=== PATIENT | female | born 1955 | race Two or more races ===

== ENCOUNTER 2025-04-21 17:01 | Emergency (ER) | payer OTHER ==
[~2025-04-21] VITALS: Ht 157.5 cm; Wt 66.0 kg
--- NOTE | 2025-04-21 17:39 | ECG ---
[facility] Test Date: 2025-04-21 Test Time: 17:31:00 Pat Name: AMOL CAMPOS Department: COUNTS INCLUDE 234 BEDS AT THE [facility] ED Patient ID: [id number] INCLUDE [id number] BEDS AT THE [facility]-[id number] Room: Gender: F Undercollar Baster: VALORIE : 1955 Requested By: VAL ALLEN Order Number: [id number] Reading MD: Lars Gomes Measurements Intervals [place] Rate: 71 P: 53 ME: 124 QRS: 67 QRSD: 110 T: -14 QT: 539 QTc: 586 Interpretive Statements Sinus rhythm Nonspecific T abnormalities, anterior leads Prolonged QT interval Electronically Signed On 04-21-2025 22:23:30 PDT by Lars Gomes Please click the below link to view image of tracing.
--- NOTE | 2025-04-21 18:33 | DVH ---
Procedure: CT HEAD WITHOUT CONTRAST Study Date and Requested Time: 04/21/2025 06:01 PM History: Headache Comparison: None Dose: CTDI: 52.22 mGy DLP: 859.6 mGycm Technique: Multiplanar images obtained through the brain without intravenous contrast. Findings: Normal brain volume and formation. Mild chronic small vessel ischemic changes. No hemorrhages, masses, mass effect, midline shift, herniation or cytotoxic edema following a large v ascular territory. No intra-axial or extra-axial fluid collections. No evidence of hydrocephalus. The basal cisterns are patent. The pituitary gland, sella and parasellar regions are unremarkable. The cerebellar tonsils are in nor mal position. The cerebellum is unremarkable. Bilateral lens replacement. Otherwise, orbits and globes are unremarkable. The paranasal sinuses and mastoids are clear. There are no worrisome calvarial lesions. Impression: No evidence of acute intracranial abnormality.
[2025-04-21 19:10] LABS: Hematocrit 42.1 % (36.0-46.0); Hemoglobin 14.2 g/dL (12.2-16.2); Mean Corpuscular Hemoglobin 30.5 pg (28.0-32.0); Mean Corpuscular Volume 90.5 fL (80.0-100.0); Nucleated Red Blood Cells % 0.1 %
[2025-04-21 19:19] LABS: Chloride 103 mmol/L (98-107); Potassium 4.4 mmol/L (3.5-5.1); Sodium 141 mmol/L (136-145)
[2025-04-21 19:20] LABS: Anion Gap 10 (5-15); Calcium 9.9 mg/dL (8.7-10.4); Carbon Dioxide 28 mmol/L (20-31)
[2025-04-21 19:25] LABS: BUN/Creatinine Ratio 20.0 (10.0-20.0); Blood Urea Nitrogen 15 mg/dL (9-23); Glucose 98 mg/dL (74-106)
--- NOTE | 2025-04-21 19:45 | ED.PDOC ---
Eye-HPI HPI Comments Abi Loaiza is a 69-year-old female with past medical history of pre- diabetes and hyperlipidemia. The patient came to the ED with chief complain of 3 days of dizziness, intermittent, the patient reports "the room is spinning around me"; associated with nausea and tinnitus in bilateral ears. Today, the dizziness persisted, this prompted her visit to the ED. The patient denies vomit, ear pain, fever. lost of consciousness, lightheaded, palpitation, h eadache, eye symptoms or others. Chief Complaint: Dizziness Time Seen by MD: 17:42 Reviewed Notes: Nurses Notes, Rubbing Bed Operator Notes, Medications, Allergies Allergies: Coded Allergies: NO KNOWN ALLERGIES (Unverified , 04/21/25) Information Source: Patient Mode of Arrival: Ambulatory Timing: Days Duration: Since onset Past Medical History Past Medical History (Other): Pre-diabetes Hyperlipidemia Constitutional: denies: chills, diaphoresis, fatigue, fever, malaise, sweats, weakness, others EENTM: reports: ear ringing; denies: blurred vision, double vision, ear bleeding, ear discharge, ear drainage, ear pain, eye pain, eye redness, hearing loss, mouth pain, mouth swelling, nasal discharge, nose bleeding, nose congestion, nose pain, photophobia, tearing, throat pain, throat swelling, voice changes, others Respiratory: denies: cough, hemoptysis, orthopnea, SOB at rest, shortness of breath, SOB with excertion, stridor, wheezing, others Cardiovascular: denies: chest pain, dizzy spells, diaphoresis, Dyspnea on exertion, edema, irregular heart beat, left arm pain, lightheadedness, palpitations, PND, syncope, others Gastrointestinal: denies: abdomen distended, abdominal pain, blood streaked bowels, constipated, diarrhea, dysphagia, difficulty swallowing, hematemesis, melena, nausea, poor appetite, poor fluid intake, rectal bleeding, rectal pain, vomiting, others Genitourinary: denies: abnormal vagina bleeding, burning, dyspareunia, dysuria, flank pain, frequency, hematuria, incontinence, pain, , vagina discharge, urgency, others Neurological: reports: dizziness; denies: fainting, headache, left sided numbness, left sided weakness, numbness, paresthesia, pre-existing deficit, right sided numbness, right sided weakness, seizure, speech problems, tingling, tremors, weakness, others Musculoskeletal: denies: back pain, gout, joint pain, joint swelling, muscle pain, muscle stiffness, neck pain, others Integumetry: denies: bruises, change in color, change in hair/nails, dryness, laceration, lesions, lumps, rash, wounds, others Allergic/Immunocompromised: denies: Difficulty Healing, Frequent Infections, Hives, Itching, others Hematologic/Lymphatic: denies: anemia, blood clots, easy bleeding, easy bruising, swollen glands, others Endocrine: denies: excessive hunger, excessive sweating, excessive thirst, excessive urination, flushing, intolerance to cold, intolerance to heat, unexplained weight gain, unexplained weight loss, others Psychiatric: denies: anxiety, bipolar disorder, depression, hopeless, panic disorder, schizophrenia, sleepless, suicidal, others Physical Exam General Appearance: No Apparent Distress, Normal HEENT: Normal ENT Inspection, Pharynx Normal, TMs Normal Neck: Full Range of Motion, Non-Tender, Normal, Normal Inspection Respiratory: Chest Non-Tender, Lungs Clear, No Accessory Muscle Use, No Respiratory Distress, Normal Breath Sounds Cardiovascular: No Edema, No JVD, No Murmur, No Gallop, Normal Peripheral Pulses, Regular Rate/Rhythm Breast Exam: Deferred Gastrointestinal: No Organomegaly, Non Tender, No Pulsatile Mass, Normal Bowel Sounds, Soft Genitalia: Deferred Pelvic: Deferred Rectal: Deferred Extremities: No calf tenderness, Normal capillary refill, Normal inspection, Normal range of motion, Non-tender, No pedal edema Musculoskeletal : Apperance: Normal Neurologic: Alert, international trade manager II-XII nml as Tested, No Motor Deficits, Normal Affect, Normal Mood, No Sensory Deficits Cerebellar Function: Normal, Other (romberg negative ) Reflexes: Normal Skin: Dry, Normal Color, Warm Peripheral Pulses: 4+ carotid (R), 4+ carotid (L) Lymphatic: No Adenopathy Was a procedure done? Was a procedure done?: No EENT DIFF Eye: Other Ear: N/A Nose: Hypertension Mouth: N/A Other Differential Diagnosis #Benign paroxysmal positional vertigo #Peripheral vertigo #New onset of essential hypertension X-Ray, Labs, Meds, VS Vital Signs Date Time Temp Pulse Resp B/P (MAP) Pulse Ox O2 Delivery O2 Flow Rate FiO2 04/21/25 17:31 71 04/21/25 17:03 97.3 78 18 153/87 98 97.3 Lab Test 04/21/25 18:45 Range/Units White Blood Count 5.5 4.4-10.8 10^3/uL Red Blood Count 4.65 4.0-5.20 10^6/uL Hemoglobin 14.2 12.2-16.2 g/dL Hematocrit 42.1 36.0-46.0 % Mean Corpuscular Volume 90.5 80.0-100.0 fL Mean Corpuscular Hemoglobin 30.5 28.0-32.0 pg Mean Corpuscular Hemoglobin Concent 33.7 32.0-36.0 g/dL Red Cell Distribution Width 13.4 11.8-14.3 % Platelet Count 207 140-450 10^3/uL Mean Platelet Volume 8.4 6.9-10.8 fL Neutrophils (%) (Auto) 55.5 37.0-80.0 % Lymphocytes (%) (Auto) 35.4 10.0-50.0 % Monocytes (%) (Auto) 7.4 0.0-12.0 % Eosinophils (%) (Auto) 1.3 0.0-7.0 % Basophils (%) (Auto) 0.4 0.0-2.0 % Neutrophils # (Auto) 3.0 1.6-8.6 10 ^3/uL Lymphocytes # (Auto) 1.9 0.4-5.4 10 ^3/uL Monocytes # (Auto) 0.4 0-1.3 10 ^3/uL Eosinophils # (Auto) 0.1 0-0.8 10 ^3/uL Basophils # (Auto) 0 0-0.2 10 ^3/uL Nucleated Red Blood Cells 0.1 % Sodium Level Pending Potassium Level Pending Chloride Level Pending Carbon Dioxide Level Pending Anion Gap Pending Blood Urea Nitrogen Pending Creatinine Pending Glomerular Filtration Rate Calc Pending BUN/Creatinine Ratio Pending Serum Glucose Pending Calcium Level Pending X-Ray, Labs, Meds, VS Comment 19:04 The patient has been re-assessed. The patient reports feeling better. VS are stable BP 145/[address] scan: No evidence of acute intracranial abnormality. CBC and BPM are unremarkable. Time of 1ST Reevaluation: 19:04 Reevaluation 1ST: Improved Patient Education/Counseling: Diagnosis, Treatment, Prognosis, Need For Follow Up Family Education/Counseling: No Family Present SEPSIS Sepsis Screen Date sepsis recognized/suspect: Apr 21, 2025 Time Sepsis recognized/suspect: 1704 Recent Procedure: No On Antibiotic Therapy: No Respiratory Rate >20: No Heart Rate >90: No Temp<36 C (96.8 F) or >38.3 C: No SBP <90 or MAP <65 mmHG: No New Acute Mental Status Change: No Is the patient on CPAP, BIPAP,: No Physician Orders Basic Metabolic Panel (04/21/25 17:59) Head Without Contrast (04/21/25 17:59) Vital Signs Date Time Temp Pulse Resp B/P (MAP) Pulse Ox O2 Delivery O2 Flow Rate FiO2 04/21/25 17:31 71 04/21/25 17:03 97.3 78 18 153/87 98 97.3 Laboratory Tests Test 04/21/25 18:45 White Blood Count 5.5 10^3/uL (4.4-10.8) Departure 1 Departure Time of Disposition: 19:44 Impression: Primary Impression: Benign positional vertigo Additional Impression: Peripheral vertigo Disposition: 01 HOME / SELF CARE / HOMELESS Condition: Good Referrals F/U with PCP in one week F/U with ENT doctor Additional Instructions: Dimenhydrinate 50mg po q8h prn for dizziness (Over the counter) Counselling about precautions on when to return to the nearest ER Discharged With: Self Comments Goals of care discussed with the patient > 35 min. Discussed plan of care with Dr. Morse Code status: Full code PCP: Does not recall name Plan discussed with: Patient, the patient agrees with the plan. Critical Care Note Critical Care Time?: No Stability Stability form required: No Heart Score Heart Score: Heart Score Response (Comments) Value History N/A 0 EKG N/A 0 Age N/A 0 Risk Factors N/A 0 Troponin N/A 0 Total 0 NAOMI IRWIN RESIDENT Apr 21, 2025 19:44
[2025-04-21 21:59] VITALS: BP 163/77; PULSE 68; RESP 19; TEMP 98.5; O2SAT 94
== END 2025-04-21 22:12 | disposition home or self-care (01) ==
LOC: ER 17:01
DX: H81.10 Benign paroxysmal vertigo, unspecified ear (principal); H81.399 Other peripheral vertigo, unspecified ear; H93.13 Tinnitus, bilateral; E78.5 Hyperlipidemia, unspecified
CPT/HCPCS: 36415; 70450; 80048; 85025; 93005